=== PATIENT | female | born 1995 | race Caucasian/White ===

== ENCOUNTER 2016-09-29 10:05 | Emergency (ER) | payer BC ==
[2016-09-29 10:41] VITALS: BP 126/66
--- NOTE | 2016-09-29 10:43 | UC ---
Knee Pain HPI - HPI Summary HPI Summary: fell on ice playing broom ball several days ago on to left knee--has tried to play lacrosse and run but get pain and feels limited with speed - History of Current Complaint Chief Complaint: UCLowerExtremity Stated Complaint: LEFT LOWER LEG PAIN Time Seen by Provider: 09/29/16 10:36 Hx Obtained From: Patient Hx Last Menstrual Period: 09/06/16 ?: No Onset/Duration: Sudden Onset - 5 days ago, Still Present Severity Initially: Moderate Severity Currently: Moderate Location Of Injury: left knee/ proximal tib-fib Pain Intensity: 3 Pain Scale Used: 0-10 Numeric Character: Aching, Throbbing Aggravating Factor(s): Movement - -running Alleviating Factor(s): Rest Associated Signs And Symptoms: Positive: Swelling, Bruising Able to Bear Weight: Yes - Allergies/Home Medications Allergies/Adverse Reactions: Allergies Allergy/AdvReac Type Severity Reaction Status Date / Time seasonal Allergy Congestion Uncoded 09/29/16 10:32 Home Medications: Home Medications Ibuprofen TAB* [Advil TAB*] 400 mg PO ONCE 09/29/16 [History Confirmed 09/29/16] PMH/Surg Hx/FS Hx/Imm Hx Previously Healthy: Yes - Surgical History Surgical History: None - Family History Known Family History: Positive: Hypertension Negative: Cardiac Disease, Diabetes - Social History Occupation: Student Lives: With Family Alcohol Use: Occasionally Substance Use Type: None Smoking Status (MU): Never Smoked Tobacco - Immunization History Most Recent Tetanus Shot: utd Review of Systems Constitutional: Negative Skin: Bruising - left knee/tib-fib Eyes: Negative ENT: Negative Respiratory: Negative Cardiovascular: Negative Gastrointestinal: Negative Genitourinary: Negative Motor: Negative Neurovascular: Negative Musculoskeletal: Arthralgia Neurological: Negative Psychological: Negative All Other Systems Reviewed And Are Negative: Yes Physical Exam Triage Information Reviewed: Yes Appearance: Well-Appearing, No Pain Distress, Well-Nourished Vital Signs: Initial Vital Signs Temp 98.3 F 09/29/16 10:21 Pulse 78 09/29/16 10:21 Resp 20 09/29/16 10:21 BP 126/66 09/29/16 10:21 Vital Signs Reviewed: Yes Eye Exam: Normal Eyes: Positive: Conjunctiva Clear ENT Exam: Normal ENT: Positive: Normal ENT inspection, Hearing grossly normal, Pharynx normal, TMs normal. Negative: Nasal congestion, Nasal drainage, Trismus, Muffled/ hoarse voice Dental Exam: Normal Neck exam: Normal Neck: Positive: Supple, Nontender Respiratory Exam: Normal Respiratory: Positive: Chest non-tender, Lungs clear, Normal breath sounds, No respiratory distress, No accessory muscle use Cardiovascular Exam: Normal Cardiovascular: Positive: RRR, No Murmur, Pulses Normal, Brisk Capillary Refill Musculoskeletal Exam: Normal Musculoskeletal: Positive: Strength Intact, ROM Intact, Edema @ - left knee Neurological Exam: Normal Neurological: Positive: Alert, Muscle Tone Normal Psychological Exam: Normal Skin Exam: Normal Diagnostics - Laboratory Diagnostic Studies Completed/Ordered: no eveidence of sanna injury Knee Pain Course/Dx - Course Course Of Treatment: rice, camryn, limit exercise-do not exercise to pain, ibuprofen, follow with sports medicine - Differential Dx/Diagnosis Differential Diagnosis/HQI/PQRI: Contusion, Internal Derangement Of Knee, Sprain , Strain Provider Diagnoses: Contusion left knee Discharge - Discharge Plan Condition: Stable Disposition: HOME Patient Education Materials: Ibuprofen (By mouth), Contusion in Adults (ED), Knee Pain (ED), RICE Therapy (ED) Referrals: Roxi Miller MD [Medical Doctor] - 3 Days
--- NOTE | 2016-09-29 11:24 | RAD ---
INDICATION: Left knee injury. TECHNIQUE: 2 views of the left knee were obtained. FINDINGS: The bones are normal alignment. No joint effusion or fracture is seen. Joint spaces appear maintained. IMPRESSION: NO EVIDENCE FOR FRACTURE.
== END 2016-09-29 11:43 | disposition home or self-care (01) ==
LOC: UCCORT 10:05
DX: S80.02XA Contusion of left knee, initial encounter (principal); W19.XXXA Unspecified fall, initial encounter; Y93.69 Activity, other involving other sports and athletics played as a team or group; Y92.9 Unspecified place or not applicable
CPT/HCPCS: 99212; G0463